=== PATIENT | female | born 1965 | race Caucasian/White ===

== ENCOUNTER 2018-06-24 08:25 | Day surgery (SDC) | payer MEDICAID ==
[2018-06-23 10:30] LABS: HEMATOCRIT 43.8 % (36.0-48.0); HEMOGLOBIN 14.7 g/dL (12-16); MCH 28.7 pg (26.0-34.0); MCHC 33.6 g/dL (31.0-37.0); MCV 85.4 fL (80.0-100.0); MEAN PLATELET VOLUME 9.8 fL (7.4-10.4); RBC 5.13 10x6/uL (4.00-5.40); RDW 13.4 % (11.5-14.5); WBC 10.5 10x3/uL (4.8-10.8)
[2018-06-23 10:40] LABS: CALC OSMOLALITY 271 mosm/kg (275-300); CALCIUM 8.7 mg/dL (8.5-10.1); CARBON DIOXIDE 29.4 mmol/L (21.0-32.0); CHLORIDE - SERUM 100 mmol/L (98-107); CREATININE - SERUM 0.8 mg/dL (0.6-1.3); GLUCOSE 222 mg/dL (74-106); POTASSIUM - SERUM 4.5 mmol/L (3.5-5.1); SODIUM 133 mmol/L (136-145); UREA NITROGEN 10 mg/dL (7-18); eGFR NON AFRICAN AMERICAN 79 mL/min (90-120)
[~2018-06-24] VITALS: Ht 157.5 cm; Wt 172.4 kg
--- NOTE | ~2018-06-24 | OP ---
PATIENT NAME: LYNETTE STAFFORD MEDICAL RECORD: [id number] :63 LOCATION:[facility] ADMISSION DATE: SURGEON: SCOTT HARVEY MD DATE OF OPERATION: 06/24/2018 PREOPERATIVE DIAGNOSIS: Rotator cuff tear of the left shoulder with impingement syndrome. POSTOPERATIVE DIAGNOSIS: Rotator cuff tear of the left shoulder with impingement syndrome. PROCEDURES: 1. Arthroscopically assisted rotator cuff repair of the left shoulder. 2. Arthroscopically assisted distal clavicle excision of the left shoulder. 3. Arthroscopically assisted subacromial decompression of the left shoulder. SURGEON: Scott Harvey MD ANESTHESIA: General. INTRAOPERATIVE COMPLICATIONS: None. SUMMARY OF PATHOLOGIC FINDINGS: In keeping with the patient's preoperative radiographic studies, the patient had a full-thickness rotator cuff tear, acromioclavicular arthritis, and a downward sloping acromion. There was excoriation of the coracoacromial ligament as well as full-thickness rotator cuff tearing seen from both above and below. Biceps tendon was in overall good condition. OPERATIVE SUMMARY IN DETAIL: After obtaining the appropriate preoperative orthopedic surgery consent as well as anesthetic consultation, evaluation, and clearance, the patient was brought to the operating room and placed on the operating table in the supine position. After adequate general laryngeal mask airway was administered, the patient was placed in right lateral decubitus position. All pressure points were well padded to include down leg peroneal pad as well as axillary roll. The patient was held firmly to the operating table using the vacuum pack suction system. The left upper extremity and shoulder were then prepped and draped in routine sterile fashion. The arm was held in the Ar[employer] traction boom at 30 degrees of forward flexion, 30 degrees of abduction, and 10 pounds of traction laterally. Arthroscopy was established in the glenohumeral joint from the posterior portal. Anterior portal was established through the anterior safe interval. Diagnostic arthroscopy did show the patient to have full-thickness rotator cuff tearing and mild bicipital labral fraying. Transarthroscopic rotator portal was created, through which the arthroscopic resector was utilized to debride the undersurface fibers of rotator cuff tearing. I then began denuding the supraspinatus tendinous footprint on the articular side. Having completed this, attention was turned to the subacromial space. While in the subacromial space, the already created accessory lateral portal of the [place] system was utilized to denude the undersurface of the acromion of all soft tissue elements and release the coracoacromial ligament. Acromioplasty was then completed to the level of the acromioclavicular joint. Having completed this, attention was turned to the distal clavicle with a separate arthroscopic portal anteriorly. Under direct arthroscopic visualization, distal clavicle was excised for 1 cm. Having completed this, further decortication of the supraspinatus tendinous footprint OPERATIVE REPORT [id number] LYNETTE STAFFORD was carried out. A single #2 FiberTape was placed in an inverted mattress style fashion and then anchored laterally with a 5.5 SwiveLock from [employer]. This resulted in good reapproximation of the rotator cuff back to the supraspinatus tendinous footprint. Having completed this, arthroscopy portals were closed in routine interrupted fashion using 4-0 Prolene. Sterile dressings were applied. The patient was awakened and taken to the recovery room in stable condition. All final needle and sponge counts were correct. TRANSINT:[id number] Voice Confirmation ID: [id number] DOCUMENT ID: [id number] CANDICE WOOD, SCOTT ORTEGA at 1418 CC: [id number] DICTATION DATE: 07/01/18 1252 MONUMENT INSTALLER: 07/01/18 1309 [facility] 06/24/18 [id number] [place] [address]
[~2018-06-24 08:25] MED LIST: GLUCOPHAGE850 MG; TENORMIN50 MG PO
[2018-06-24] MEDS ORDERED: MAGNESIUM OXID250 MG PO (09:10)
[2018-06-24 09:35] VITALS: BP 137/76; Ht 157.5 cm; Wt 172.4 kg
[2018-06-24] MEDS ORDERED: HYDROCODONE-APA1 TAB PO (13:53)
== END 2018-06-24 16:00 | disposition home or self-care (01) ==
LOC: D.OPS 08:25 → D.PAN 08:40 → D.OPS 16:00
PROVIDERS: Anesthesiology
DX: M75.122 Complete rotator cuff tear or rupture of left shoulder, not specified as traumatic (principal); M75.42 Impingement syndrome of left shoulder; Z01.812 Encounter for preprocedural laboratory examination